=== PATIENT | female | born 1935 | race Caucasian/White ===

== ENCOUNTER 2017-06-15 10:49 | Emergency (ER) | payer OTHER ==
[~2017-06-15] VITALS: Ht 167.6 cm; Wt 78.5 kg
[2017-06-15 10:56] VITALS: Ht 167.6 cm; Wt 78.5 kg
[2017-06-15] MEDS ORDERED: BISA10SU5 RE (11:22)
[2017-06-15] MEDS ORDERED: LCTX PO (11:22)
[2017-06-15] MEDS ORDERED: ACET-1311 PO (11:22)
[2017-06-15] MEDS ORDERED: DOCU1TAB6 PO (11:22)
[2017-06-15] MEDS ORDERED: ENOX40IN SQ (11:22)
[2017-06-15] MEDS ORDERED: MRLP17X PO (11:22)
[2017-06-15] MEDS ORDERED: LACT10SO30 PO (11:22)
[2017-06-15] MEDS ORDERED: FAMO20TA11 PO (11:22)
[2017-06-15] MEDS ORDERED: OXYC1TAB3 PO (11:22)
[2017-06-15] MEDS ORDERED: FNTTP50 TD (11:22)
[2017-06-15] MEDS ORDERED: SENN1TAB65 PO (11:22)
[2017-06-15] MEDS ORDERED: LIDO2GEL8 EXT (11:22)
[2017-06-15] MEDS ORDERED: NF656 EXT (11:22)
[2017-06-15] MEDS ORDERED: MOML PO (11:22)
[2017-06-15] MEDS ORDERED: SODIENE PR (11:22)
--- NOTE | 2017-06-15 11:27 | EMERGENCY ROOM VISIT NOTE ---
History Report prepared by Michael: Glenn Chapman Under the Supervision of: Dr. Eddie Diggs M.D. First contact with patient: 10:59 Chief Complaint: ABRASION Stated Complaint: FALL Nursing Triage Summary: pt was at [facility] over balanced self off of comode causing a colosion with the door on the top of head where abrasion is. pt hx of bed sores, sore on foot History of Present Illness The patient is an 81 year old female who presents to the Emergency Room with complaints of a sudden fall occurring prior to arrival. The patient was sitting on commode, and she lost her balance, and she hit her head on a door. She got an abrasion, and she had to come in for evaluation per [facility]. She denies any neck pain, abdominal pain, or back pain. The patient has limited mobility in her lower extremities due to past injuries and ailments such as transverse myelitis. The patient states that she is currently on blood thinners because she is inactive, and she has an irregular heat beat. She states that she is on Lovenox, though she is not on Coumadin. Additionally she states that she has a history of right shoulder fractures. Source of History: patient Onset: prior to arrival Position: other (global) Quality: other (fall) Timing: other (sudden) Associated Symptoms: No neck pain, No abdominal pain, No back pain Note: Associated symptoms: Abrasions Review of Systems See HPI for pertinent positives and negatives. A total of ten systems were reviewed and were otherwise negative. Past Medical & Surgical Medical Problems: (1) Shoulder fracture (2) Transverse myelitis Social History Smoking Status: Former Smoker Housing Status: senior living Occupation Status: retired Current/Historical Medications Scheduled Docusate Sodium (Docusate Sodium), 1 TAB PO BID Enoxaparin (Lovenox), 40 MG SQ DAILY Famotidine (Pepcid), 20 MG PO BID Fentanyl (Duragesic), 50 MCG TD [id number] Lactobacillus Acidophilus (Lactinex), 1 TAB PO DAILY Lactulose (Encephalopathy) (Lactulose), 1 DOSE PO BID Lidocaine (Lidoderm Patch 5%), 2 PATCH EXT DAILY Lidocaine Hcl (Lidocaine Hcl), 1 APPL EXT DIRECTED Polyethylene (Miralax), 17 GM PO QDL Sennosides-Docusate Sodium (Senna Plus), 1 TAB PO QDL Scheduled PRN Acetaminophen (Tylenol), 325 MG PO Q4H PRN for Pain or Fever Bisacodyl (Bisacodyl), 1 SUPP RE DAILY PRN for Constipation Magnesium Hydroxide (Milk Of Magnesia), 30 ML PO DAILY PRN for Constipation Oxycodone Ir (Roxicodone Ir), 5 MG PO Q2H PRN for Breakthrough Pain Sodium Phosphate/Biphosphate (Fleet Enema), 1 EA HI DAILY PRN for Constipation Allergies Coded Allergies: Alprazolam (Unverified Allergy, Intermediate, DELIRIUM, 06/15/17) Cephalexin (Unverified Allergy, Intermediate, GI SYMPTOMS, 06/15/17) Diazepam (Unverified Allergy, Intermediate, DELIRIUM, 06/15/17) Metoprolol (Unverified Allergy, Intermediate, , 06/15/17) Sulfamethoxazole w/Trimethoprim (Unverified Allergy, Intermediate, GI SYMPTOMS, 06/15/17) Flu Virus Vaccine (Unverified Allergy, Mild, , 06/15/17) Lorazepam (Unverified Allergy, Mild, DELIRIUM, 06/15/17) Ofloxacin (Unverified Allergy, Mild, , 06/15/17) Physical Exam Vital Signs Date Time Temp Pulse Resp B/P (MAP) Pulse Ox O2 Delivery O2 Flow Rate FiO2 06/15/17 13:02 36.7 87 18 162/105 100 06/15/17 10:56 36.7 89 18 149/92 97 Room Air Physical Exam GENERAL: Awake, alert, chronically ill-appearing, in no acute distress HENT: 2cm abrasion to the right temporal scalp near the midline with a similarly small underlying hematoma. Normocephalic. Dry mucous membranes. Oropharynx unremarkable. EYES: Normal conjunctiva. Sclera non-icteric. NECK: Supple. No nuchal rigidity. FROM. No JVD. RESPIRATORY: Clear to auscultation. CARDIAC: Regular rate, normal rhythm. Extremities warm and well perfused. Pulses equal. ABDOMEN: Soft, non-distended. No tenderness to palpation. No rebound or guarding. No masses. RECTAL: Deferred. MUSCULOSKELETAL: Chest examination reveals no tenderness. The back is symmetrical on inspection without obvious abnormality. There is no CVA tenderness to palpation. No joint edema. LOWER EXTREMITIES: Left proximal lateral posterior thigh has a small abrasion which is 3cm diameter with no underlying hematoma. Calves are equal size bilaterally and non-tender. No edema. No discoloration. NEURO: 4/5 strength bilaterally in the lower extremities which is baseline. Absent sensation from the waist down which is also baseline. SKIN: No rash or jaundice noted. Medical Decision & Procedures ER Provider Diagnostic Interpretation: Radiology results as stated below per my review and radiologist interpretation: HEAD WITHOUT CONTRAST (CT) CT DOSE: HISTORY: Mental status change CHI TECHNIQUE: Multiaxial CT images of the head were performed without the use of intravenous contrast. A dose lowering technique was utilized adhering to the principles of ALARA. Comparison: None. Findings: The paranasal sinuses and mastoid air cells are clear. The calvarium and skull base are intact. The ventricles and sulci are within normal limits. There is no mass, hematoma, midline shift, or acute infarct. Impression: No acute intracranial abnormality. The above report was generated using voice recognition software. It may contain grammatical, syntax or spelling errors. Electronically signed by: Jovany Vargas M.D. 06/15/2017 11:53 AM Dictated Date/Time: 06/15/2017 11:52 AM CERVICAL SPINE W/O CT DOSE: 893.19 mGy.cm HISTORY: Trauma neck pain after fall TECHNIQUE: Multiaxial CT images of the cervical spine were performed and reformatted in the sagittal and coronal plane without the use of contrast. A dose lowering technique was utilized adhering to the principles of ALARA. COMPARISON: None. FINDINGS: No fractures. No subluxation. Prevertebral soft tissues and the C1-C2 interval are intact. No pneumothorax. Considerable degenerative disc change. Thyroid enlargement. IMPRESSION: Considerable degenerative change. No acute bony abnormality. The above report was generated using voice recognition software. It may contain grammatical, syntax or spelling errors. Electronically signed by: Jovany Vargas M.D. 06/15/2017 11:55 AM Dictated Date/Time: 06/15/2017 11:53 AM ED Course 1111: The patient was evaluated in room C6. A complete history and physical exam was performed. 1235: I reevaluated the patient. Discussed results and discharge instructions: She verbalized understanding and agreement. The patient is ready for discharge. Medical Decision I reviewed the patient's past medical history, medications, and the nursing notes as described above. The patient's presentation and history were concerning for closed head injury, abrasion, hematoma of the scalp, possible intracranial hemorrhage/ subdural/ arachnoid hemorrhage, possible C-spine fracture, and muscular strain. The patient is an 81-year-old woman accompanied a past medical history of transverse myelitis remotely with subsequent loss of sensation in bilateral lower extremities who presents to the emergency department from her care home facility after having a mechanical fall where she was on the toilet and leaned full word too far falling over and hitting her head on the door. Patient denies any preceding chest pain shortness of breath dizziness. Denies nausea or vomiting or changes from her baseline function and actually preferred not to be transferred to the hospital. On exam the patient is chronically ill- appearing however in no acute distress. Arrives afebrile with stable vital signs. Neurologically the patient has 5 out of 5 strength in bilateral upper extremities and 4 out of 5 strength in bilateral lower extremities and absent sensation that is at baseline. On the scalp there is a 2 cm abrasion to the right temporal area near midline with very small underlying hematoma. Patient has some mild discomfort on palpation of the right paraspinal area of her C- spine however has full range of motion. Considering this elderly patient is on Lovenox with this fall will check CT head and C-spine. If negative will discharge back to facility. CT scan of the head and C-spine were negative for acute findings. Patient was discharged back to her facility per instructions. Medication Reconcilliation Current Medication List: was personally reviewed by me Blood Pressure Screening Patient's blood pressure: Elevated blood pressure Blood pressure disposition: Elevated BP felt to be situational Impression Primary Impression: Head injury, closed Additional Impressions: Hematoma Abrasion Scribe Attestation The scribe's documentation has been prepared under my direction and personally reviewed by me in its entirety. I confirm that the note above accurately reflects all work, treatment, procedures, and medical decision making performed by me. Departure Information Dispostion Home / Self-Care Forms HOME CARE DOCUMENTATION FORM, IMPORTANT VISIT INFORMATION Patient Instructions ED Abrasion, ED Head Injury Closed, ED Hematoma, My [facility] Additional Instructions Please follow up with your primary care physician in the next 1-3 days. Your exam and CT scans of your head and cervical spine did not show signs of an emergent condition. Return to the emergency department for worsening symptoms as described in the accompanying instructions. Problem Qualifiers
--- NOTE | 2017-06-15 11:54 | DIAGNOSTIC IMAGING REPORT ---
HEAD WITHOUT CONTRAST (CT) CT DOSE: HISTORY: Mental status change CHI TECHNIQUE: Multiaxial CT images of the head were performed without the use of intravenous contrast. A dose lowering technique was utilized adhering to the principles of ALARA. Comparison: None. Findings: The paranasal sinuses and mastoid air cells are clear. The calvarium and skull base are intact. The ventricles and sulci are within normal limits. There is no mass, hematoma, midline shift, or acute infarct. Impression: No acute intracranial abnormality. The above report was generated using voice recognition software. It may contain grammatical, syntax or spelling errors. Electronically signed by: Jovany Vargas M.D. 06/15/2017 11:53 AM Dictated Date/Time: 06/15/2017 11:52 AM
--- NOTE | 2017-06-15 11:57 | DIAGNOSTIC IMAGING REPORT ---
CERVICAL SPINE W/O CT DOSE: 893.19 mGy.cm HISTORY: Trauma neck pain after fall TECHNIQUE: Multiaxial CT images of the cervical spine were performed and reformatted in the sagittal and coronal plane without the use of contrast. A dose lowering technique was utilized adhering to the principles of ALARA. COMPARISON: None. FINDINGS: No fractures. No subluxation. Prevertebral soft tissues and the C1-C2 interval are intact. No pneumothorax. Considerable degenerative disc change. Thyroid enlargement. IMPRESSION: Considerable degenerative change. No acute bony abnormality. The above report was generated using voice recognition software. It may contain grammatical, syntax or spelling errors. Electronically signed by: Jovany Vargas M.D. 06/15/2017 11:55 AM Dictated Date/Time: 06/15/2017 11:53 AM
[2017-06-15 13:02] VITALS: BP 162/105; PULSE 87; TEMP 36.7; O2SAT 100
== END 2017-06-15 13:00 | disposition home or self-care (01) ==
LOC: EDBD 10:49 → C.EDC 10:52
DX: S09.90XA Unspecified injury of head, initial encounter (principal); S00.83XA Contusion of other part of head, initial encounter; S00.91XA Abrasion of unspecified part of head, initial encounter; W01.0XXA Fall on same level from slipping, tripping and stumbling without subsequent striking against object, initial encounter; Z87.81 Personal history of (healed) traumatic fracture; Z79.899 Other long term (current) drug therapy; Z87.891 Personal history of nicotine dependence; Z88.2 Allergy status to sulfonamides; Z88.8 Allergy status to other drugs, medicaments and biological substances